=== PATIENT | female | born 1995 | race Caucasian/White ===

== ENCOUNTER 2017-01-15 14:20 | Inpatient (IN) | payer MEDICAID ==
[~2017-01-15] VITALS: Ht 170.2 cm; Wt 60.3 kg
[2017-01-15 14:35] VITALS: BP 144/78
[2017-01-15] MEDS ORDERED: LACTATED RINGERS 1,000 ML IV ONE ×2 (14:55→16:07)
[2017-01-15] MEDS ORDERED: metroNIDAZOLE 500MG/100ML IVPB 100 ML ONE (14:55)
[2017-01-15] MEDS ORDERED: FAMOTIDINE 20MG/2ML IV (PEPCID) IV ONE (15:00)
[2017-01-15] MEDS ORDERED: METOCLOPRAMIDE INJ 10 MG/2 ML (REGLAN) IV ONE (15:00)
[2017-01-15] MEDS ORDERED: ceFAZolin 2 GM/50 ML NS 50 ML IV ONE (15:00)
[2017-01-15] MEDS ORDERED: CITRIC ACID/SOB CIT (BICITRA) 30 ML UDC PO ONE (15:00)
[2017-01-15] MEDS ORDERED: CATHETER FLUSH 10 ML SYR IV PRN (15:15)
[2017-01-15 15:38] LABS: BASOPHILS % (AUTO) 0 % (0-10); EOSINOPHILS # (AUTO) 0.2 10^3/uL (0.0-0.3); EOSINOPHILS % (AUTO) 1 % (0-10); LYMPHOCYTES # (AUTO) 2.1 X 10^3 (1.0-4.0); LYMPHOCYTES % (AUTO) 9 % (12-44); MEAN CORPUSCULAR HEMOGLOBIN 32 PG (25-34); MEAN CORPUSCULAR HGB CONC 34 G/DL (32-36); MEAN CORPUSCULAR VOLUME 96 FL (80-99); MEAN PLATELET VOLUME 12.6 FL (7.4-10.4); MONOCYTES # (AUTO) 1.8 X 10^3 (0.0-1.0); MONOCYTES % (AUTO) 8 % (0-12); NEUTROPHILS # (AUTO) 18.1 X 10^3 (1.8-7.8); NEUTROPHILS % (AUTO) 82 % (42-75); PLATELET COUNT 174 10^3/uL (130-400); RED BLOOD COUNT 3.69 10^6/uL (4.35-5.85); WHITE BLOOD COUNT 22.2 10^3/uL (4.3-11.0)
[2017-01-15 15:39] LABS: BILIRUBIN,URINE NEGATIVE (NEGATIVE); KETONES,URINE 2+ (NEGATIVE); LEUKOCYTE ESTERASE ,URINE 3+ (NEGATIVE); NITRITE,URINE NEGATIVE (NEGATIVE); PH,URINE 6.5 (5-9); PROTEIN,URINE NEGATIVE (NEGATIVE); UROBILINOGEN,URINE NORMAL (NORMAL)
[2017-01-15 15:50] VITALS: BP 158/81
[2017-01-15 15:54] LABS: WBC,URINE 25-50 /HPF
[2017-01-15] MEDS ORDERED: OXYTOCIN/NORMAL SALINE 1,000 ML IV ONE (15:54)
[2017-01-15] MEDS ORDERED: fentaNYL INJECTION 100 MCG/2 ML AMP ONE (15:55)
[2017-01-15] MEDS ORDERED: PREN1TAB86 PO (16:02)
[2017-01-15 16:08] LABS: BAND NEUTROPHILS 2 %; BASOPHILS % (MANUAL) 0 %; EOSINOPHILS % (MANUAL) 0 %; LYMPHOCYTES % (MANUAL) 13 %; NEUTROPHILS % (MANUAL) 82 %
[2017-01-15 16:20] VITALS: BP 155/75
[2017-01-15] MEDS ORDERED: INFLUENZA TRIvalent 2017-2018 0.5 ML/45 MCG SYR IM ONE (16:30)
[2017-01-15] MEDS ORDERED: KETAMINE HCL 100 MG/ML 5 ML VIAL ONE (16:34)
[2017-01-15] MEDS ORDERED: D5 LR IV SOLUTION 1,000 ML IV SCH (16:42)
[2017-01-15] MEDS ORDERED: MEASLES,MUMPS,RUBELLA 1 EA INJ SC ONE (16:45)
[2017-01-15] MEDS ORDERED: fentaNYL INJECTION 100 MCG/2 ML AMP IVP PRN (16:45)
[2017-01-15] MEDS ORDERED: metroNIDAZOLE 500MG/100ML IVPB 100 ML IV ONE (16:45)
[2017-01-15] MEDS ORDERED: ceFAZolin INJECTION 2,000 MG in NS (IVPB) 50 ML IV ONE (16:45)
[2017-01-15] MEDS ORDERED: TETANUS,DIPTH,PERTUSS P/F (BOOSTRIX) 0.5 ML VIAL IM ONE (16:45)
[2017-01-15] MEDS ORDERED: D5 LR IV SOLUTION 1,000 ML IV ONE (16:51)
--- NOTE | 2017-01-15 16:52 | History & Physical ---
History and Physical Date Seen by Provider: Jan 15, 2017 Time Seen by Provider: 16:48 this patient is a 21-year-old 1 white female with an EDC of 2016 seen on this date in clinic for routine OB follow-up. She reports that 3- 4 days ago she beganas swelling and tenderness in the lower right labia majora. S to the point today where it is markedly swollen and exquisitely tender. She reports she's never had these issues before never had symptoms like this before. She denies rupture membranes or bleeding. She says she feels an occasional contraction and does feel baby moving. GBS culture done after 35 weeks gestation was negative. Exam in clinic demonstrated a large right Bartholin abscess. Patient has no significant surrounding erythema. The area is indurated. There was a fluctuant and tender mass in the inferior right labia majora consistent with an abscess of the Bartholin gland cyst. She was sent to labor and delivery for admission IV antibiotics delivery via repeat and surgical treatment of the abscessed Bartholin cyst. Allergies are none Medications are vitamins S medical history, past surgical history, obstetric history, family histories are per the antepartum record HEENT exam is normal Neck is supple no lymphadenopathy no thyromegaly Abdomen is gravid soft nontender nondistended Extremities show clubbing cyanosis there is no Homans sign. Right labia majora is distended tender inflamed. There is a obvious or abscess present. Lab work on admission is as noted Laboratory Tests Test 01/15/17 15:18 01/15/17 15:20 Range/Units White Blood Count 22.2 H 4.3-11.0 10^3/uL Red Blood Count 3.69 L 4.35-5.85 10^6/uL Hemoglobin 11.9 11.5-16.0 G/DL Hematocrit 36 35-52 % Mean Corpuscular Volume 96 80-99 FL Mean Corpuscular Hemoglobin 32 25-34 PG Mean Corpuscular Hemoglobin Concent 34 32-36 G/DL Red Cell Distribution Width 14.0 10.0-14.5 % Platelet Count 174 130-400 10^3/uL Mean Platelet Volume 12.6 H 7.4-10.4 FL Neutrophils (%) (Auto) 82 H 42-75 % Lymphocytes (%) (Auto) 9 L 12-44 % Monocytes (%) (Auto) 8 0-12 % Eosinophils (%) (Auto) 1 0-10 % Basophils (%) (Auto) 0 0-10 % Neutrophils # (Auto) 18.1 H 1.8-7.8 X 10^3 Lymphocytes # (Auto) 2.1 1.0-4.0 X 10^3 Monocytes # (Auto) 1.8 H 0.0-1.0 X 10^3 Eosinophils # (Auto) 0.2 0.0-0.3 10^3/uL Basophils # (Auto) 0.0 0.0-0.1 10^3/uL Neutrophils % (Manual) 82 % Lymphocytes % (Manual) 13 % Monocytes % (Manual) 3 % Eosinophils % (Manual) 0 % Basophils % (Manual) 0 % Band Neutrophils 2 % Blood Morphology Comment NORMAL Urine Color YELLOW Urine Clarity CLEAR Urine pH 6.5 5-9 Urine Specific Jed[place] 1.010 L 1.016-1.022 Urine Protein NEGATIVE NEGATIVE Urine Glucose (UA) NEGATIVE NEGATIVE Urine Ketones 2+ H NEGATIVE Urine Nitrite NEGATIVE NEGATIVE Urine Bilirubin NEGATIVE NEGATIVE Urine Urobilinogen NORMAL NORMAL MG/DL Urine Leukocyte Esterase 3+ H NEGATIVE Urine RBC (Auto) NEGATIVE NEGATIVE Urine RBC NONE /HPF Urine WBC 25-50 H /HPF Urine Squamous Epithelial Cells 5-10 /HPF Urine Crystals NONE /LPF Urine Bacteria FEW H /HPF Urine Casts NONE /LPF Urine Mucus NEGATIVE /LPF Urine Culture Indicated YES White blood cell count isAn elevated monitor shows normal heart rate pattern. There are contractions every 4-6 minutes. Assessment and plan 37-5/7 weeks' gestation in patient with previous C- section and with a right Bartholin abscess of several different days duration. Her white blood cell count is fairly markedly elevated. She has been started on antibiotics. Prior to surgical treatment of this abscess proceeding with repeat delivery. Then the abscess will be marsupialized. 37-5/7 weeks' gestation with previous and right Bartholin abscess Allergies and Home Medications Allergies Coded Allergies: No Known Drug Allergies (Unverified , 01/15/17) Home Medications Vit W-Ca,Fe,FA(<1 mg) 1 Each Tablet, 1 EACH PO DAILY, (Reported) Clinical Quality Measures DVT/VTE Risk/Contraindication: Risk Factor Score Per Nursin RFS Level Per Nursing on Admit: 2=Moderate MAGGIE ROBERTS MD Jan 15, 2017 4:52 pm
--- NOTE | 2017-01-15 16:53 | Progress Note-Post Operative ---
Post-Operative Progess Note Surgeon (s)/Remote Encoding Operations Supervisor (s) Surgeon MAGGIE ROBERTS MD Remote Encoding Operations Supervisor: Teetee Johnson Pre-Operative Diagnosis right Bartholin abscess at 37-5/7 weeks' gestation with previous Post-Operative Diagnosis signed Procedure & Operative Findings Date of Procedure 01/15/17 Procedure Performed/Findings repeat low transverse delivery and marsupialization of a right Bartholin abscess Anesthesia Type spinal Estimated Blood Loss Estimated blood loss (mL): 500 mL for the 30 mL for the marsupialization of right Bartholin Specimens/Packing Specimens Removed placenta and umbilical cord. Culture from right Bartholin abscess Packing: none MAGGIE ROBERTS MD Jan 15, 2017 16:53
[2017-01-15] MEDS: KETOROLAC 30 MG/ML VIAL IVP SCH ×2 (17:45→23:17)
[2017-01-15] MEDS: oxyCODONE/APAP 10/325MG (PERCOCET 10) TABLET PO PRN (19:35)
[2017-01-15 19:50] VITALS: BP 140/83
[2017-01-15 21:00] VITALS: BP 136/79
[2017-01-15] MEDS ORDERED: metroNIDAZOLE 500MG/100ML IVPB 100 ML IV SCH ×2 (21:00→22:00)
[2017-01-15] MEDS ORDERED: ceFAZolin INJECTION 1,000 MG in NS (IVPB) 50 ML IV SCH (21:00)
[2017-01-15] MEDS: OXYTOCIN/NORMAL SALINE 500 ML IV SCH ×2 (21:40→21:52)
[2017-01-15] MEDS: HYDROCORTISONE 2.5% CREAM (ANUSOL-HC) 30 GM TOP SCH (21:42)
[2017-01-15] MEDS: DOCUSATE SODIUM 100 MG (COLACE) CAP PO SCH (21:52)
[2017-01-15 23:17] VITALS: BP 133/73
[2017-01-16 00:44] VITALS: BP 139/59
[2017-01-16] MEDS: oxyCODONE/APAP 10/325MG (PERCOCET 10) TABLET PO PRN ×3 (00:44→10:21)
[2017-01-16] MEDS: ceFAZolin INJECTION 1,000 MG in NS (IVPB) 50 ML IV SCH ×2 (00:44→08:36)
[2017-01-16 04:52] VITALS: BP 143/68
[2017-01-16 05:52] LABS: BASOPHILS % (AUTO) 0 % (0-10); EOSINOPHILS # (AUTO) 0.3 10^3/uL (0.0-0.3); EOSINOPHILS % (AUTO) 2 % (0-10); LYMPHOCYTES # (AUTO) 2.5 X 10^3 (1.0-4.0); LYMPHOCYTES % (AUTO) 17 % (12-44); MEAN CORPUSCULAR HEMOGLOBIN 31 PG (25-34); MEAN CORPUSCULAR HGB CONC 32 G/DL (32-36); MEAN CORPUSCULAR VOLUME 97 FL (80-99); MEAN PLATELET VOLUME 12.7 FL (7.4-10.4); MONOCYTES # (AUTO) 1.7 X 10^3 (0.0-1.0); MONOCYTES % (AUTO) 12 % (0-12); NEUTROPHILS # (AUTO) 9.9 X 10^3 (1.8-7.8); NEUTROPHILS % (AUTO) 69 % (42-75); PLATELET COUNT 161 10^3/uL (130-400); RED BLOOD COUNT 3.69 10^6/uL (4.35-5.85); RED CELL DISTRIBUTION WIDTH 13.8 % (10.0-14.5); WHITE BLOOD COUNT 14.4 10^3/uL (4.3-11.0)
[2017-01-16] MEDS: KETOROLAC 30 MG/ML VIAL IVP SCH (06:49)
--- NOTE | 2017-01-16 07:46 | Progress Note-Standard ---
Standard Progress Note Progress Notes/Assess & Plan Date Seen by Provider: Jan 16, 2017 Time Seen by Provider: 07:45 Progress/Assessment & Plan this patient is without complaint. Her labial pain is markedly improved after marsupialization of the Bartholin abscess. Patient is ambulating, voiding, tolerating by mouth well, has good pain control. Patient denies chest pain, denies shortness of breath, denies nausea or vomiting, patient is requesting discharge home as her child has been transferred to [facility] last evening. Laboratory Tests Test 01/15/17 15:18 01/15/17 15:20 01/16/17 05:35 Range/Units White Blood Count 22.2 H 14.4 H 4.3-11.0 10^3/uL Red Blood Count 3.69 L 3.69 L 4.35-5.85 10^6/uL Hemoglobin 11.9 11.6 11.5-16.0 G/DL Hematocrit 36 36 35-52 % Mean Corpuscular Volume 96 97 80-99 FL Mean Corpuscular Hemoglobin 32 31 25-34 PG Mean Corpuscular Hemoglobin Concent 34 32 32-36 G/DL Red Cell Distribution Width 14.0 13.8 10.0-14.5 % Platelet Count 174 161 130-400 10^3/uL Mean Platelet Volume 12.6 H 12.7 H 7.4-10.4 FL Neutrophils (%) (Auto) 82 H 69 42-75 % Lymphocytes (%) (Auto) 9 L 17 12-44 % Monocytes (%) (Auto) 8 12 0-12 % Eosinophils (%) (Auto) 1 2 0-10 % Basophils (%) (Auto) 0 0 0-10 % Neutrophils # (Auto) 18.1 H 9.9 H 1.8-7.8 X 10^3 Lymphocytes # (Auto) 2.1 2.5 1.0-4.0 X 10^3 Monocytes # (Auto) 1.8 H 1.7 H 0.0-1.0 X 10^3 Eosinophils # (Auto) 0.2 0.3 0.0-0.3 10^3/uL Basophils # (Auto) 0.0 0.0 0.0-0.1 10^3/uL Neutrophils % (Manual) 82 % Lymphocytes % (Manual) 13 % Monocytes % (Manual) 3 % Eosinophils % (Manual) 0 % Basophils % (Manual) 0 % Band Neutrophils 2 % Blood Morphology Comment NORMAL Urine Color YELLOW Urine Clarity CLEAR Urine pH 6.5 5-9 Urine Specific [place] 1.010 L 1.016-1.022 Urine Protein NEGATIVE NEGATIVE Urine Glucose (UA) NEGATIVE NEGATIVE Urine Ketones 2+ H NEGATIVE Urine Nitrite NEGATIVE NEGATIVE Urine Bilirubin NEGATIVE NEGATIVE Urine Urobilinogen NORMAL NORMAL MG/DL Urine Leukocyte Esterase 3+ H NEGATIVE Urine RBC (Auto) NEGATIVE NEGATIVE Urine RBC NONE /HPF Urine WBC 25-50 H /HPF Urine Squamous Epithelial Cells 5-10 /HPF Urine Crystals NONE /LPF Urine Bacteria FEW H /HPF Urine Casts NONE /LPF Urine Mucus NEGATIVE /LPF Urine Culture Indicated YES Vital Signs Date Time Temp Pulse Resp B/P (MAP) Pulse Ox O2 Delivery O2 Flow Rate FiO2 01/16/17 04:52 97.6 90 18 143/68 97 Room Air 01/16/17 00:44 97.6 79 18 139/59 97 Room Air 01/15/17 23:17 97.4 77 18 133/73 97 Room Air 01/15/17 21:00 98.0 88 18 136/79 98 Room Air 01/15/17 19:50 98.6 97 18 140/83 98 Room Air 01/15/17 16:20 92 18 155/75 Room Air 01/15/17 15:50 91 18 158/81 Room Air 01/15/17 14:35 99.0 93 18 144/78 Room Air vital signs are stable. Patient is afebrile. Patient's white count has decreasedNotably. Fundus is firm below the umbilicus and nontender. Extremities show no clubbing or cyanosis. There is no Homans sign. Assessment and plan postoperative day number 1 status post repeat doing well. Patient's Bartholin abscess pain is dramatically improved after the marsupialization. Patient will be continued on antibiotics empirically pending the culture results from the abscess cavity. Patient will be discharged home with follow-up in clinic. Final Diagnosis 37-5/7 weeks' gestation with repeat MAGGIE ROBERTS MD Jan 16, 2017 7:46 am
--- NOTE | 2017-01-16 07:49 | Discharge Instructions ---
Discharge Instructions Discharge Medications New, Converted or Re-Newed RX: RX on Chart Patient Instructions Patient Instructions: as directed Return to The Hospital For: as directed Activity & Diet Discharge Diet: No Restrictions Activity as Tolerated: No Orders-Post D/C & Referrals Follow Up Appt: RTC on Thursday, January 19, 2017 at 930 a.m. for staple removal. Call to make follow up appt. for patient in 4 weeks. Wound Care: do not remove sukumar prior to discharge. We will remove the surgical sukumar Thursday morning in my clinic Activity Per routine post instructions. Please call in RX to patient pharmacy. Diet as tolerated Patient may shower or tub bathe as desired. Continue home meds MAGGIE ROBERTS MD Jan 16, 2017 7:49 am
[2017-01-16] MEDS ORDERED: DOCU100C37 PO (07:51)
[2017-01-16] MEDS ORDERED: OXYC-465 PO (07:51)
[2017-01-16] MEDS ORDERED: CEPH-507 PO (07:51)
[2017-01-16] MEDS ORDERED: IBUP-1780 PO (07:51)
[2017-01-16 08:30] VITALS: BP 136/75
[2017-01-16] MEDS: HYDROCORTISONE 2.5% CREAM (ANUSOL-HC) 30 GM TOP SCH (08:37)
[2017-01-16] MEDS: DOCUSATE SODIUM 100 MG (COLACE) CAP PO SCH (08:37)
--- NOTE | 2017-01-16 10:38 | Anesthesia-Regional Post-Op ---
Regional Patient Condition Mental Status: Alert, Oriented x3 Circulation: Same as Pre-Op Headache: Absent Sensation: Full Recovery Motor Block: Absent Post Op Complications Complications None Follow Up Care/Instructions Patient Instructions None needed. Anesthesia/Patient Condition Patient is doing well, no complaints, stable vital signs, no apparent adverse anesthesia problems. No complications reported per nursing. JANIYA ALVARADO CRNA Jan 16, 2017 10:38
[2017-01-16] MEDS ORDERED: IBUPROFEN 800 MG (MOTRIN) TAB PO ONE (12:15)
[2017-01-16] MEDS ORDERED: IBUPROFEN 800 MG (MOTRIN) TAB PO SCH (16:45)
--- NOTE | 2017-01-18 04:33 | OPERATIVE REPORT ---
DATE OF SERVICE: 01/15/2017 PREOPERATIVE DIAGNOSIS: 37 and 5/7 weeks' gestation with previous and with large right Bartholin abscess. POSTOPERATIVE DIAGNOSIS: 37 and 5/7 weeks' gestation with previous and with large right Bartholin abscess. OPERATIVE PROCEDURE: Repeat low transverse delivery followed by a marsupialization of right Bartholin abscess. OPERATIVE DESCRIPTION: With the patient in the supine position under satisfactory spinal anesthesia, she was prepped and draped in the usual fashion for abdominal surgery. Garcia catheter was placed in the urinary bladder. A repeat Pfannenstiel incision was made through the skin with a scalpel by removing the patient's previous Pfannenstiel incisional scar, which was approximately centimeter and a half tall across almost its entire length. The abdomen was then entered in the usual manner. Bladder retractor was placed into position and clean scalpel used to make a 4 cm hysterotomy incision transversally across the lower uterine segment that was extended by blunt dissection as well. Copious clear fluid was released on hysterotomy. Potts forceps were applied to facilitate delivery of a vigorous viable male . The had Apgars of 8, 7 and 8 at 1, 5 and 10 minutes. The infant's weight was 5 pounds 8 ounces. time was 1715. Cord bloods arterial pH was 7.31. The infant was bulb suctioned on delivery of the head and again on completion of delivery. The umbilical cord was doubly clamped and cut and the infant passed to the nurse Micah, the pediatric nurse in attendance for delivery. Cord bloods were obtained. The placenta was then delivered spontaneously Schule. It was normal, although quite heavily calcified and did have a 3-vessel cord. That was sent to pathology for permanent section. The uterus was exteriorized, the anterior wiped clean with a wet laparotomy sponge. Uterine incision was closed with a running locked suture of 2-0 Vicryl. Hemostasis was complete. The uterus was returned to abdominal cavity. All blood clot and debris removed from the abdominal cavity. With sponge and needle counts correct and hemostasis assured, the anterior parietal peritoneum was closed with a running suture of 2-0 Vicryl. The rectus muscles were closed with that suture as well. The rectus fascia was closed with 2-0 Vicryl, subcutaneous tissue with 2-0 Vicryl and the skin was stapled. Sponge and needle counts were correct at this point. The patient was undraped and repositioned in the dorsal lithotomy position and then reprepped and draped for marsupialization of Bartholin abscess. Garcia catheter had been removed after the . The patient had a 3 x 3 cm fluctuant mass filling the right lower labia majora. This was palpable to just inside the hymenal ring. Sutures of 2-0 Vicryl were placed in the right labia minora and affixed to the inner thigh to expose the introitus and retract the labia. A suture of 2-0 Vicryl Rapide was placed into and out of the cystic mass and tagged and a second was placed inferior to that and tagged. An incision was made in between the sutures releasing copious iridescent green purulent matter. A culture was taken of the abscess cavity. The midportion of the suture was then brought out through the incision. This suture was cut and tagged in the 4 locations; anterior and posterior, left and right, lateral on the opening into the abscess pocket. A third suture was then used to suture the skin to the cyst wall between each of the four cardinal sutures and then each of the four cardinal sutures were tied and cut short effectively marsupializing the pocket. The pocket had been copiously irrigated after opening it. There was minimal bleeding at this point. The labia retraction sutures were removed. The patient had minimal bleeding from her . Sponge and needle counts were correct at this point. Estimated blood loss for the was around 500 mL. Additional 30 mL of blood was lost performing the marsupialization of the right Bartholin abscess. A Dawna-Pad was applied. Sterile dressing had been applied to the abdominal wound. The patient was now transferred to the recovery room in stable condition. The had been taken stable to the full term nursery under the care of Micah elias. Job ID: [id number] DocumentID: [id number] Dictated Date: 01/15/2017 18:05:07 Computer Lab Assistant Date: 01/16/2017 05:02:35 Dictated By: MAGGIE ROBERTS MD [facility]ENTERJavi
== END 2017-01-16 14:00 | disposition home or self-care (01) | DRG 765 ==
LOC: LDRP 14:20
PROVIDERS: ADMIT Obstetrics & Gynecology; ATTEND Obstetrics & Gynecology
PROC: 10D00Z1 Extraction of Products of Conception, Low, Open Approach (ICD-10-PCS; principal; 2017-01-15 16:47)
PROC: 0U9L0ZZ Drainage of Vestibular Gland, Open Approach (ICD-10-PCS; 2017-01-15 16:47)
DX: O34.211 Maternal care for low transverse scar from previous cesarean delivery (principal); O99.89 Other specified diseases and conditions complicating pregnancy, childbirth and the puerperium; N75.1 Abscess of Bartholin's gland; O99.333 Smoking (tobacco) complicating pregnancy, third trimester; F17.210 Nicotine dependence, cigarettes, uncomplicated; Z3A.37 37 weeks gestation of pregnancy; Z37.0 Single live birth
CPT/HCPCS: 36415; 81000; 85007; 85025; 85027; 86850; 86900; 86901; 87070; 87075; 87077; 87088; 87205

== ENCOUNTER 2019-11-16 17:45 | Emergency (ER) | payer MEDICAID ==
[~2019-11-16] VITALS: Ht 170 cm; Wt 52.0 kg
[~2019-11-16 17:45] MED LIST: CEPH-507 PO; DOCU100C37 PO; IBUP-1780 PO; OXYC-465 PO; PREN1TAB86 PO
--- OUTSIDE RECORDS SUMMARY | 2019-11-16 17:49 | XMS REPORT | Continuity of Care Document ---
Author Organization Unknown Address Unknown Phone Unavailable Allergies Active Description Code Type Severity Reaction Onset Reported/Identified Relationship to Patient Clinical Status Yes No Known Drug Allergies [id number] Drug Allergy Unknown N/A 01/15/2017 Medications There is no data. Problems Date Dx Coded Attending Type Code Diagnosis Diagnosed By 01/16/2017 MAGGIE ROBERTS MD, Ot F17.210 NICOTINE DEPENDENCE, CIGARETTES, UNCOMPL 01/16/2017 MAGGIE ROBERTS MD, Ot N75.1 ABSCESS OF BARTHOLIN'S GLAND 01/16/2017 MAGGIE ROBERTS MD, Ot O34.211 MATERN CARE FOR LOW TRANSVERSE SCAR FROM 01/16/2017 MAGGIE ROBERTS MD, Ot O99.333 SMOKING (TOBACCO) COMPLICATING 01/16/2017 MAGGIE ROBERTS MD, Ot O99.89 OTH DISEASES AND CONDITIONS COMPL PREG/C 01/16/2017 MAGGIE ROBERTS MD, Ot Z37.0 SINGLE LIVE 01/16/2017 MAGGIE ROBERTS MD, Ot Z3A.37 37 WEEKS GESTATION OF Procedures Code Description Performed By Per formed On [id number] DR GAVIRIA OF VESTIBULAR GLAND, OPEN APPRO 01/15/2017 [id number] EX TRACTION OF POC, LOW CERVICAL, OPEN AP 01/15/2017 Results Test Result Range Blood type T Indirect antibody screen pa lm - 01/15/17 15:18 ABO+Rh group AP NRG Transfusion band number [id number] NRG Blood group antibody screen NEGATIVE NR G Complete blood count (CBC) with automate d white blood cell (WBC) differential - 01/15/17 15:18 Blood leukocytes automated count (number/volume) 22.2 10*3/uL 4.3-11.0 Blood erythrocytes automated count (number/volume) 3.69 10*6/uL 4.35-5.85 Venous blood hemoglobin measurement (mass/volume) 11.9 g/dL 11.5-16.0 Blood hematocrit (volume fraction) 36 % 35-52 Automated erythrocyte mean corpuscular volume 96 [ foz_us] 80-99 Automated erythrocyte mean corpuscular h emoglobin (mass per erythrocyte) 32 pg 25-34 Automated erythrocyte mean corpuscular h emoglobin concentration measurement (mass/volume) 34 g/dL 32-36 Automated erythrocyte distribution width ratio 14. 0 % 10.0- 14.5 Automated blood platelet count (count/volume) 174 10*3/uL 130-400 Automated blood platelet mean volume measurement 12.6 [foz_us] 7.4-10.4 Automated blood neutrophils/100 leukocytes 82 % 42-75 Automated blood lymphocytes/100 leukocytes 9 % 12-44 Blood monocytes/100 leukocytes 8 % 0-12 Automated blood eosinophils/100 leukocytes 1 % 0-10 Automated blood basophils/100 leukocytes 0 % 0-10 Blood neutrophils automated count (number/volume) 18.1 10*3 1.8-7.8 Blood lymphocytes automated count (number/volume) 2.1 10*3 1.0-4.0 Blood monocytes automated count (number/volume) 1. 8 10*3 0.0-1.0 Automated eosinophil count 0.2 10*3/uL 0 .0-0.3 Automated blood basophil count (count/volume) 0.0 10*3/uL 0.0-0.1 Blood manual differential performed dete ction - 01/15/17 15:18 Blood monocytes/100 leukocytes 3 % NRG Manual blood segmented neutrophils/100 leukocytes 82 % NRG Blood band neutrophils/100 leukocytes 2 % NRG Manual blood lymphocytes/100 leukocytes 13 % NRG Manual eosinophils/100 leukocytes in nose 0 % NRG Manual blood basophils/100 leukocytes 0 % NRG Blood erythrocyte morphology finding identification NORMAL NRG Complete urinalysis with reflex to cultu re - 01/15/17 15:20 Urine color determination YELLOW NRG Urine clarity determination CLEAR NR G Urine pH measurement by test strip 6.5 5-9 Specific gravity of urine by test strip 1.010 1.016-1.022 Urine protein assay by test strip, semi-quantitative NEGATIVE NEGATIVE Urine glucose detection by automated test strip NE GATIVE NEGATIVE Erythrocytes detection in urine sediment by light micr oscopy NEGATIVE NEGATIVE Urine ketones detection by automated test strip 2+ NEGATIVE Urine nitrite detection by test strip NEGATIVE NEGATIVE Urine total bilirubin detection by test strip NEGA TIVE NEGATIVE Urine urobilinogen measurement by automated test strip (mass/volume) NORMAL NORMAL Urine leukocyte esterase detection by dipstick 3+ NEGATIVE Automated urine sediment erythrocyte cou nt by microscopy (number/high power field) NONE NRG Automated urine sediment leukocyte count by microscopy (number/high power field) [HPF] NRG Bacteria detection in urine sediment by light microsco py FEW NRG Squamous epithelial cells detection in u rine sediment by light microscopy 5-10 NRG Crystals detection in urine sediment by light microsco py NONE NRG Casts detection in urine sediment by light microscopy NONE NRG Mucus detection in urine sediment by light microscopy NEGATIVE NRG Complete urinalysis with reflex to culture YES NRG Bacterial urine culture - 01/15/17 15:20 Bacterial urine culture [id number] NRG COLONY COUNT >100,000/ML NRG FTX;REPORTABLE PLUS MIXED GRAM POSITIVES <10,000/M L NRG Bacteria identification in isolate by an aerobe culture - 01/15/17 17:45 Bacteria identification in isolate by anaerobe culture NOANA NRG Gram stain microscopy - 01/15/17 17:45 GRAM STAIN RESULT FEW WBC'S, NO BACTERIA OBSERVED NRG Bacteria identification in wound by cult ure - 01/15/17 17:45 Bacteria identification in wound by culture [id number] NRG FREE TEXT EXTERNAL BETA-LACTAMASE NEGATIVE NRG QUANTITY OF GROWTH Moderate Growth NRG Complete blood count (CBC) with automate d white blood cell (WBC) differential - 01/16/17 05:35 Blood leukocytes automated count (number/volume) 14.4 10*3/uL 4.3-11.0 Blood erythrocytes automated count (number/volume) 3.69 10*6/uL 4.35-5.85 Venous blood hemoglobin measurement (mass/volume) 11.6 g/dL 11.5-16.0 Blood hematocrit (volume fraction) 36 % 35-52 Automated erythrocyte mean corpuscular volume 97 [ foz_us] 80-99 Automated erythrocyte mean corpuscular h emoglobin (mass per erythrocyte) 31 pg 25-34 Automated erythrocyte mean corpuscular h emoglobin concentration measurement (mass/volume) 32 g/dL 32-36 Automated erythrocyte distribution width ratio 13. 8 % 10.0- 14.5 Automated blood platelet count (count/volume) 161 10*3/uL 130-400 Automated blood platelet mean volume measurement 12.7 [foz_us] 7.4-10.4 Automated blood neutrophils/100 leukocytes 69 % 42-75 Automated blood lymphocytes/100 leukocytes 17 % 12-44 Blood monocytes/100 leukocytes 12 % 0-12 Automated blood eosinophils/100 leukocytes 2 % 0-10 Automated blood basophils/100 leukocytes 0 % 0-10 Blood neutrophils automated count (number/volume) 9.9 10*3 1.8-7.8 Blood lymphocytes automated count (number/volume) 2.5 10*3 1.0-4.0 Blood monocytes automated count (number/volume) 1. 7 10*3 0.0-1.0 Automated eosinophil count 0.3 10*3/uL 0 .0-0.3 Automated blood basophil count (count/volume) 0.0 10*3/uL 0.0-0.1 Encounters ACCT No. Visit Date/Time Discharge Status Pt. Type Provider Facility Loc./Unit Complaint [id number] 10/18/2018 15:30:00 10/18/2018 23:59: 59 CLS Out[facility] [id number] 01/15/2017 14:20:00 017 14:00:00 DIS Inpatient ALEJANDRA MODI, MAGGIE [facility] L[facility] REPEAT C-SECTIO N
--- NOTE | 2019-11-16 17:56 | ED GU-Female ---
General Chief Complaint: Abdominal/GI Problems Stated Complaint: ABD/BACK PAIN Source: patient Exam Limitations: no limitations History of Present Illness Date Seen by Provider: Nov 16, 2019 Time Seen by Provider: 17:56 Initial Comments 24-year-old female presents with right lower quadrant and right back pain. Patient believes she is approximately 8 weeks based on a home test. Patient's last menstrual cycle was approximately September 21 which would make her approximately 7 weeks 6/7 days. Patient reports the pain started around 1 PM this afternoon his gotten progressively worse throughout the day. Patient reports the pain is a little bit higher up in her right lower abdomen not so much down in the pelvis. She does report some nausea. She has had. 2 previous miscarriages. She does not have any vaginal bleeding. She does not have any urinary symptoms. Allergies and Home Medications Allergies Coded Allergies: No Known Drug Allergies (Unverified , 01/15/17) Home Medications Cephalexin 500 Mg Capsule, 500 MG PO QID Prescribed by: MAGGIE RASHID on 01/16/17750 Docusate Sodium 100 Mg Capsule, 100 MG PO BID Prescribed by: MAGGIE RASHID on 01/16/17750 Ibuprofen 800 Mg Tablet, 800 MG PO Q6H Prescribed by: MAGGIE RASHID on 01/16/17 075 Oxycodone HCl/Acetaminophen 1 Each Tablet, 1-2 TAB PO Q4HR PRN for PAIN-MODERATE TO SEVERE Prescribed by: MAGGIE RASHID on 01/16/17 075 Vit W-Ca,Fe,FA(<1 mg) 1 Each Tablet, 1 EACH PO DAILY, (Reported) Patient Home Medication List Home Medication List Reviewed: Yes Review of Systems Review of Systems Constitutional: No chills, No fever Respiratory: No cough, No short of breath Cardiovascular: No chest pain, No palpitations Gastrointestinal: abdominal pain (RLQ), nausea; No vomiting Genitourinary: denies burning, denies frequency Musculoskeletal: no symptoms reported Skin: no symptoms reported Psychiatric/Neurological: No Symptoms Reported Endocrine: No Symptoms Reported Hematologic/Lymphatic: No Symptoms Reported Past Cowqthz-Aacoxr-Lipkob Hx Past Med/Social Hx: Reviewed Nursing Past Med/Soc Hx Patient Social History Alcohol Use: Denies Use Recreational Drug Use: No Smoking Status: Former Smoker Type Used: Cigarettes Recent Foreign Travel: No Contact w/Someone Who Travel: No Recent Hopitalizations: No Immunizations Up To Date Tetanus Booster (TDap): Unknown Seasonal Allergies Seasonal Allergies: No Past Medical History Surgeries: Yes (hand surgery) Respiratory: No Cardiac: Yes ("skipped beats") Neurological: No Genitourinary: No Gastrointestinal: No Musculoskeletal: No Endocrine: No HEENT: No Cancer: No Psychosocial: No Integumentary: No Blood Disorders: No Family Medical History Patient reports no known family medical history. Physical Exam Vital Signs Vital Signs - First Documented 11/16/19 17:56 Temp 37.0 Pulse 80 Resp 16 B/P (MAP) 145/85 (105) Pulse Ox 100 O2 Delivery Room Air Capillary Refill : Height, Weight, BMI Height: 5'7.00" Weight: 133lbs. 0.6oz. 60.825086nv; 20.8 BMI Method: General Appearance: no apparent distress HEENT: normal ENT inspection, TMs normal Neck: full range of motion Cardiovascular: normal peripheral pulses, regular rate, rhythm Respiratory: lungs clear, normal breath sounds, no respiratory distress Gastrointestinal: soft, tenderness (rlq) Back: CVA tenderness (R) Neurologic/Psychiatric: alert, normal mood/affect, oriented x 3 Skin: normal color, warm/dry Progress/Results/Core Measures Suspected Sepsis SIRS Temperature: Pulse: Respiratory Rate: Laboratory Tests 11/16/19 18:15: White Blood Count 10.8 Blood Pressure / Mean: Laboratory Tests 11/16/19 18:15: Creatinine 0.71, Platelet Count 170, Total Bilirubin 0.7 Results/Orders Lab Results Laboratory Tests Test 11/16/19 17:50 11/16/19 18:15 Range/Units Urine Color YELLOW Urine Clarity SLT CLOUDY Urine pH 6.0 5-9 Urine Specific [place] 1.020 1.016-1.022 Urine Protein NEGATIVE NEGATIVE Urine Glucose (UA) NEGATIVE NEGATIVE Urine Ketones 3+ H NEGATIVE Urine Nitrite NEGATIVE NEGATIVE Urine Bilirubin NEGATIVE NEGATIVE Urine Urobilinogen 0.2 < = 1.0 MG/DL Urine Leukocyte Esterase NEGATIVE NEGATIVE Urine RBC (Auto) 1+ H NEGATIVE Urine RBC 2-5 H /HPF Urine WBC 0-2 /HPF Urine Squamous Epithelial Cells 5-10 /HPF Urine Crystals NONE /LPF Urine Bacteria TRACE /HPF Urine Casts NONE /LPF Urine Mucus SMALL H /LPF Urine Culture Indicated NO White Blood Count 10.8 4.3-11.0 10^3/uL Red Blood Count 4.00 L 4.35-5.85 10^6/uL Hemoglobin 12.4 11.5-16.0 G/DL Hematocrit 37 35-52 % Mean Corpuscular Volume 93 80-99 FL Mean Corpuscular Hemoglobin 31 25-34 PG Mean Corpuscular Hemoglobin Concent 33 32-36 G/DL Red Cell Distribution Width 12.4 10.0-14.5 % Platelet Count 170 130-400 10^3/uL Mean Platelet Volume 11.9 H 7.4-10.4 FL Neutrophils (%) (Auto) 80 H 42-75 % Lymphocytes (%) (Auto) 12 12-44 % Monocytes (%) (Auto) 6 0-12 % Eosinophils (%) (Auto) 1 0-10 % Basophils (%) (Auto) 0 0-10 % Neutrophils # (Auto) 8.7 H 1.8-7.8 X 10^3 Lymphocytes # (Auto) 1.3 1.0-4.0 X 10^3 Monocytes # (Auto) 0.7 0.0-1.0 X 10^3 Eosinophils # (Auto) 0.1 0.0-0.3 10^3/uL Basophils # (Auto) 0.0 0.0-0.1 10^3/uL Sodium Level 136 135-145 MMOL/L Potassium Level 3.6 3.6-5.0 MMOL/L Chloride Level 100 98-107 MMOL/L Carbon Dioxide Level 20 L 21-32 MMOL/L Anion Gap 16 H 5-14 MMOL/L Blood Urea Nitrogen 14 7-18 MG/DL Creatinine 0.71 0.60-1.30 MG/DL Estimat Glomerular Filtration Rate > 60 BUN/Creatinine Ratio 20 Glucose Level 108 H 70-105 MG/DL Calcium Level 9.9 8.5-10.1 MG/DL Corrected Calcium 8.5-10.1 MG/DL Total Bilirubin 0.7 0.1-1.0 MG/DL Aspartate Amino Transf (AST/SGOT) 19 5-34 U/L Alanine Aminotransferase (ALT/SGPT) 14 0-55 U/L Alkaline Phosphatase 41 40-136 U/L C-Reactive Protein 0.04 <0.50 MG/DL Total Protein 7.1 6.4-8.2 GM/DL Albumin 4.8 H 3.2-4.5 GM/DL Human Chorionic Gonadotropin, Quant [id number] H <5 MIU/ML My Orders Orders - NORTONANAHY L DO Ua Culture If Indicated (11/16/19 17:56) Cbc With Automated Diff (11/16/19 18:06) Comprehensive Metabolic Panel (11/16/19 18:06) Hcg,Quantitative (11/16/19 18:06) Crp Fs (11/16/19 18:06) Ed Iv/Invasive Line Start (11/16/19 19:17) Fentanyl Injection (Sublimaze Injection (11/16/19 19:17) Ondansetron Injection (Zofran Injectio (11/16/19 19:45) Ondansetron Injection (Zofran Injectio (11/16/19 19:32) Medications Given in ED Current Medications Medications Dose Ordered Sig/Pratik Route Start Time Stop Time Status Last Admin Dose Admin Ondansetron HCl 4 mg ONCE ONCE IVP 11/16/19 19:45 11/16/19 19:46 DC 11/16/19 19:39 4 MG Vital Signs/I&O 11/16/19 11/16/19 17:56 19:48 Temp 37.0 Pulse 80 86 Resp 16 16 B/P (MAP) 145/85 (105) 124/79 Pulse Ox 100 100 O2 Delivery Room Air Room Air Capillary Refill : Progress Note : Time: 20:14 Progress Note pt with RLQ pain concerning for early miscarriage vs ectoptic. pt was to be transferred to [facility] to ER for US since not available at [facility] or [facility]. when ems arrived to transport pt, pt declined transfer and decided to leave ama. pt voices understanding of risk. Departure Impression Primary Impression: Qualified Codes: Z3A.08 - 8 weeks gestation of Additional Impression: Right lower quadrant abdominal pain affecting in first trimester Disposition: AGAINST MEDICAL ADVICE Condition: Stable Transfer Transfer Reason: Exceeds level of care Time Spoke to Accepting Phy: 19:12 Transfer Progress Notes Patient to be transferred since she needs an OB ultrasound rule out ectopic cy or other etiology concerning etiology. Ultrasound is not available at the [facility], here at [facility] or [facility] Departure-Patient Inst. Referrals: NO,LOCAL PHYSICIAN (PCP/Family) Primary Care Physician ANAHY NORTON DO Nov 16, 2019 17:56
[2019-11-16 18:07] LABS: CLARITY,URINE SLT CLOUDY; COLOR,URINE YELLOW; PROTEIN,URINE NEGATIVE (NEGATIVE)
[2019-11-16 18:08] LABS: GLUCOSE, URINE (UA) NEGATIVE (NEGATIVE); KETONES,URINE 3+ (NEGATIVE)
[2019-11-16 18:09] LABS: BILIRUBIN,URINE NEGATIVE (NEGATIVE); LEUKOCYTE ESTERASE ,URINE NEGATIVE (NEGATIVE); NITRITE,URINE NEGATIVE (NEGATIVE); WBC,URINE 0-2 /HPF
[2019-11-16 18:10] LABS: BACTERIA,URINE TRACE /HPF
[2019-11-16 18:22] LABS: HEMATOCRIT 37 % (35-52); HEMOGLOBIN 12.4 G/DL (11.5-16.0); MEAN CORPUSCULAR HEMOGLOBIN 31 PG (25-34); MEAN CORPUSCULAR HGB CONC 33 G/DL (32-36); MEAN CORPUSCULAR VOLUME 93 FL (80-99); MEAN PLATELET VOLUME 11.9 FL (7.4-10.4); PLATELET COUNT 170 10^3/uL (130-400); RED CELL DISTRIBUTION WIDTH 12.4 % (10.0-14.5); WHITE BLOOD COUNT 10.8 10^3/uL (4.3-11.0)
[2019-11-16 18:23] LABS: BASOPHILS % (AUTO) 0 % (0-10); EOSINOPHILS # (AUTO) 0.1 10^3/uL (0.0-0.3); EOSINOPHILS % (AUTO) 1 % (0-10); LYMPHOCYTES # (AUTO) 1.3 X 10^3 (1.0-4.0); LYMPHOCYTES % (AUTO) 12 % (12-44); MONOCYTES # (AUTO) 0.7 X 10^3 (0.0-1.0); MONOCYTES % (AUTO) 6 % (0-12); NEUTROPHILS # (AUTO) 8.7 X 10^3 (1.8-7.8); NEUTROPHILS % (AUTO) 80 % (42-75)
[2019-11-16 18:58] LABS: ALANINE AMINOTRANSFERASE 14 U/L (0-55); ALBUMIN 4.8 GM/DL (3.2-4.5); ALKALINE PHOSPHATASE 41 U/L (40-136); BILIRUBIN,TOTAL 0.7 MG/DL (0.1-1.0); BUN/CREATININE RATIO 20; CALCIUM 9.9 MG/DL (8.5-10.1); CARBON DIOXIDE 20 MMOL/L (21-32); CHLORIDE 100 MMOL/L (98-107); CREATININE SERUM 0.71 MG/DL (0.60-1.30); GFR ESTIMATED > 60; GLUCOSE 108 MG/DL (70-105); POTASSIUM 3.6 MMOL/L (3.6-5.0); SODIUM 136 MMOL/L (135-145); TOTAL PROTEIN 7.1 GM/DL (6.4-8.2)
[2019-11-16] MEDS ORDERED: fentaNYL INJECTION 100 MCG/2 ML AMP IVP STA (19:17)
[2019-11-16] MEDS ORDERED: ONDANSETRON 4 MG/2 ML (SDV) Z0FRAN ONE (19:32)
[2019-11-16] MEDS ORDERED: ONDANSETRON 4 MG/2 ML (SDV) Z0FRAN IVP ONE (19:45)
[2019-11-16 19:48] VITALS: BP 124/79
== END 2019-11-16 20:28 | disposition left against medical advice (07) ==
LOC: EDUNIT# 17:45 → ER FS 17:46
DX: O26.891 Other specified pregnancy related conditions, first trimester (principal); R10.31 Right lower quadrant pain; Z3A.08 8 weeks gestation of pregnancy
CPT/HCPCS: 36415; 80053; 81000; 84702; 84703; 85025; 86141

== ENCOUNTER 2019-11-17 09:16 | Emergency (ER) | payer MEDICAID ==
[~2019-11-17] VITALS: Ht 170 cm; Wt 55.0 kg
--- OUTSIDE RECORDS SUMMARY | 2019-11-17 09:44 | XMS REPORT | Continuity of Care Document ---
Author Organization Unknown Address Unknown Phone Unavailable Allergies Active Description Code Type Severity Reaction Onset Reported/Identified Relationship to Patient Clinical Status Yes No Known Drug Allergies [id number] Drug Allergy Unknown N/A 01/15/2017 Medications There [...] Code Description Performed By Per formed On [id number] DR GAVIRIA OF VESTIBULAR GLAND, OPEN APPRO 01/15/2017 [id number] EX TRACTION OF POC, LOW CERVICAL, OPEN AP 01/15/2017 Results Test Result Range Blood type T Indirect antibody screen pa lm - 01/15/17 15:18 ABO+Rh group AP NRG Transfusion band number [id number] NRG Blood group antibody screen NEGATIVE NR [...] culture - 01/15/17 15:20 Bacterial urine culture [id number] NRG COLONY COUNT >100,000/ML NRG FTX;REPORTABLE PLUS [...] 17:45 Bacteria identification in wound by culture [id number] NRG FREE TEXT EXTERNAL BETA-LACTAMASE NEGATIVE [...] blood basophil count (count/volume) 0.0 10*3/uL 0.0-0.1 Complete urinalysis with reflex to cultu re - 11/16/19 17:50 Urine color determination YELLOW NRG Urine clarity determination SLT CLOUDY NRG Urine pH measurement by test strip 6.0 5-9 Specific gravity of urine by test strip 1.020 1.016-1.022 Urine protein assay by test strip, semi-quantitative NEGATIVE NEGATIVE Urine glucose detection by automated test strip NE GATIVE NEGATIVE Erythrocytes detection in urine sediment by light micr oscopy 1+ NEGATIVE Urine ketones detection by automated test strip 3+ NEGATIVE Urine nitrite detection by test strip NEGATIVE NEGATIVE Urine total bilirubin detection by test strip NEGA TIVE NEGATIVE Urine urobilinogen measurement by automated test strip (mass/volume) 0.2 mg/dL < = 1.0 Urine leukocyte esterase detection by dipstick NEG ATIVE NEGATIVE Automated urine sediment erythrocyte cou nt by microscopy (number/high power field) [HPF] NRG Automated urine sediment leukocyte count by microscopy (number/high power field) [HPF] NRG Bacteria detection in urine sediment by light microsco py TRACE NRG Squamous epithelial cells detection in u rine sediment by light microscopy 5-10 NRG Crystals detection in urine sediment by light microsco py NONE NRG Casts detection in urine sediment by light microscopy NONE NRG Mucus detection in urine sediment by light microscopy SMALL NRG Complete urinalysis with reflex to culture NO NRG Complete blood count (CBC) with automate d white blood cell (WBC) differential - 11/16/19 18:15 Blood leukocytes automated count (number/volume) 10.8 10*3/uL 4.3-11.0 Blood erythrocytes automated count (number/volume) 4.00 10*6/uL 4.35-5.85 Venous blood hemoglobin measurement (mass/volume) 12.4 g/dL 11.5-16.0 Blood hematocrit (volume fraction) 37 % 35-52 Automated erythrocyte mean corpuscular volume 93 [ foz_us] 80-99 Automated erythrocyte mean corpuscular h emoglobin (mass per erythrocyte) 31 pg 25-34 Automated erythrocyte mean corpuscular h emoglobin concentration measurement (mass/volume) 33 g/dL 32-36 Automated erythrocyte distribution width ratio 12. 4 % 10.0- 14.5 Automated blood platelet count (count/volume) 170 10*3/uL 130-400 Automated blood platelet mean volume measurement 11.9 [foz_us] 7.4-10.4 Automated blood neutrophils/100 leukocytes 80 % 42-75 Automated blood lymphocytes/100 leukocytes 12 % 12-44 Blood monocytes/100 leukocytes 6 % 0-12 Automated blood eosinophils/100 leukocytes 1 % 0-10 Automated blood basophils/100 leukocytes 0 % 0-10 Blood neutrophils automated count (number/volume) 8.7 10*3 1.8-7.8 Blood lymphocytes automated count (number/volume) 1.3 10*3 1.0-4.0 Blood monocytes automated count (number/volume) 0. 7 10*3 0.0-1.0 Automated eosinophil count 0.1 10*3/uL 0 .0-0.3 Automated blood basophil count (count/volume) 0.0 10*3/uL 0.0-0.1 Comprehensive metabolic panel - 11/16/19 18:15 Serum or plasma sodium measurement (moles/volume) 136 mmol/L 135-145 Serum or plasma potassium measurement (moles/volume) 3.6 mmol/L 3.6-5.0 Serum or plasma chloride measurement (moles/volume) 100 mmol/L 98-107 Carbon dioxide 20 mmol/L 21-32 Serum or plasma anion gap determination (moles/volume) 16 mmol/L 5-14 Serum or plasma urea nitrogen measurement (mass/volume ) 14 mg/dL 7-18 Serum or plasma creatinine measurement (mass/volume) 0.71 mg/dL 0.60-1.30 Serum or plasma urea nitrogen/creatinine mass ratio 20 NRG Serum or plasma creatinine measurement w ith calculation of estimated glomerular filtration rate > NRG Serum or plasma glucose measurement (mass/volume) 108 mg/dL 70-105 Serum or plasma calcium measurement (mass/volume) 9.9 mg/dL 8.5-10.1 Serum or plasma total bilirubin measurement (mass/volu me) 0.7 mg/dL 0.1-1.0 Serum or plasma alkaline phosphatase aj surement (enzymatic activity/volume) 41 U/L 40-136 Serum or plasma aspartate aminotransfera se measurement (enzymatic activity/volume) 19 U/L 5-34 Serum or plasma alanine aminotransferase measurement (enzymatic activity/volume) 14 U/L 0-55 Serum or plasma protein measurement (mass/volume) 7.1 g/dL 6.4-8.2 Serum or plasma albumin measurement (mass/volume) 4.8 g/dL 3.2-4.5 Serum or plasma choriogonadotropin measu rement (units/volume) - 11/16/19 18:15 Serum or plasma choriogonadotropin measurement (units/ volume) 18947 m[iU]/mL <5 CRP FS - 11/16/19 18:15 CRP FS 0.04 mg/dL <0.50 Encounters ACCT No. Visit Date/Time Discharge Status Pt. Type Provider Facility Loc./Unit Complaint [id number] 10/18/2018 15:30:00 10/18/2018 23:59: 59 CLS Outpatient RACHEL JOE DO [facility] [id number] 11/16/2019 17:46:00 020 20:28:00 DIS Emergency ANAHY NORTON DO [facility] ER FS ABD/BACK PAIN [id number] 01/15/2017 14:20:00 017 14:00:00 DIS Inpatient MAGGIE ROBERTS MD [facility] LDRP REPEAT C-SECTIO N
--- NOTE | 2019-11-17 09:53 | ED GU-Female ---
General Chief Complaint: OB < 20 WEEKS Stated Complaint: RT FLANK PAIN; RT ABD PAIN; VAGINAL BLEEDING Nursing Triage Note: PT LEFT AMA LAST PM AFTER SHE WAS TOLD EMS WOULD TRANSFER HER TO [facility] BUT COULD NOT WAIT ON HER TO HAVE AN ULTRASOUND AND BRING HER BACK TO [facility]. SHE STATES SHE IS HERE THIS AM FOR AN ULTRASOUND BC SHE WAS TOLD TO FOLLOW UP WITH OBGYN THIS AM FOR AN ULTRASOUND. SHE DID NOT CALL OB BUT PRESENTED BACK TO THE ER FOR AN ULTRASOUND. Nursing Sepsis Screen: No Definite Risk Source: patient, old records History of Present Illness Date Seen by Provider: Nov 17, 2019 Time Seen by Provider: 09:18 Initial Comments 24 yo female presents to the ED for follow up from last night's ED visit. She was going to be a transfer to [facility] to have an ultrasound to evaluate for right sided pelvic and flank pain and see if she had an ectopic . She believes she is about 8 weeks based off of her last menstrual period. She states that she was having severe pain last night and after leaving she did have some spotting that she believes was from her vaginal area. She did not transferred to [facility] for the ultrasound because she would not have a way to be transported to home after having the test done. She states that she fairly recently moved to the area and does not have a regular provider. She has 2 children at home and has had 2 previous miscarriages in the last 2 years. She was concerned that she was having another miscarriage because of having some spotting last night and feeling like she was having similar pains. She took some Tylenol and went to bed. This morning her pain is doing a lot better and is basically resolved. However she presented to the emergency department for follow-up as she felt like she still needed an ultrasound to determine what was causing her pain. Allergies and Home Medications Allergies Coded Allergies: No Known Drug Allergies (Unverified , 01/15/17) Home Medications Cephalexin 500 Mg Capsule, 500 MG PO QID Prescribed by: MAGGIE RASHID on 01/16/17 075 Docusate Sodium 100 Mg Capsule, 100 MG PO BID Prescribed by: MAGGIE RASHID on 01/16/17 075 Ibuprofen 800 Mg Tablet, 800 MG PO Q6H Prescribed by: MAGGIE RASHID on 01/16/17 0751 Oxycodone HCl/Acetaminophen 1 Each Tablet, 1-2 TAB PO Q4HR PRN for PAIN-MODERATE TO SEVERE Prescribed by: MAGGIE RASHID on 01/16/17 0751 Vit W-Ca,Fe,FA(<1 mg) 1 Each Tablet, 1 EACH PO DAILY, (Reported) Patient Home Medication List Home Medication List Reviewed: Yes Review of Systems Review of Systems Constitutional: No chills; dizziness (sometimes if she stands up after squatting down); No fever EENTM: no symptoms reported Respiratory: no symptoms reported Cardiovascular: palpitations (occasional) Gastrointestinal: see HPI Genitourinary: see HPI; denies burning, denies dysuria : Yes Musculoskeletal: no symptoms reported Skin: no symptoms reported Psychiatric/Neurological: No Symptoms Reported Endocrine: No Symptoms Reported Hematologic/Lymphatic: No Symptoms Reported Past Spolnyd-Ehcagu-Qmzdby Hx Past Med/Social Hx: Reviewed Nursing Past Med/Soc Hx Patient Social History Alcohol Use: Denies Use Recreational Drug Use: No Type Used: Cigarettes Recent Foreign Travel: No Contact w/Someone Who Travel: No Recent Infectious Disease Expo: No Recent Hopitalizations: No Physical Abuse: No Sexual Abuse: No Mistreated: No Fear: No Immunizations Up To Date Tetanus Booster (TDap): Unknown Seasonal Allergies Seasonal Allergies: No Past Medical History Surgeries: Yes (hand surgery) Respiratory: No Cardiac: Yes ("skipped beats") Neurological: No Hx : 5 Hx Para: 2 Hx Total # of Abortions (Sp): 2 (miscarriage x 2) Genitourinary: No Gastrointestinal: No Musculoskeletal: No Endocrine: No HEENT: No Cancer: No Psychosocial: No Integumentary: No Blood Disorders: No Family Medical History Patient reports no known family medical history. Physical Exam Vital Signs Vital Signs - First Documented 11/17/19 09:28 Temp 36.6 Pulse 81 Resp 18 B/P (MAP) 152/93 (112) Pulse Ox 98 O2 Delivery Room Air Capillary Refill : Less Than 3 Seconds Height, Weight, BMI Height: 5'7.00" Weight: 133lbs. 0.6oz. 60.037303vi; 19.00 BMI Method: General Appearance: WD/WN, no apparent distress, thin HEENT: PERRL/EOMI, pharynx normal Neck: non-tender, full range of motion, supple Cardiovascular: normal peripheral pulses, regular rate, rhythm, no edema Respiratory: chest non-tender, lungs clear, normal breath sounds, no respiratory distress, no accessory muscle use Gastrointestinal: normal bowel sounds, non tender, soft, no pulsatile mass Back: normal inspection, no CVA tenderness, no vertebral tenderness Extremities: normal range of motion, non-tender, normal inspection, no pedal edema, normal capillary refill Neurologic/Psychiatric: alert, normal mood/affect, oriented x 3 Skin: normal color, warm/dry Progress/Results/Core Measures Suspected Sepsis Recent Fever Within 48 Hours: No Infection Criteria Present: None New/Unexplained Altered Menta: No Sepsis Screen: No Definite Risk SIRS Temperature: Pulse: 81 Respiratory Rate: 18 Blood Pressure 152 /93 Mean: 112 Results/Orders My Orders Orders - NIRAV VERDUGO MD Us Ob Single Fetus<14 [id number] (11/17/19 09:42) Vital Signs/I&O 11/17/19 09:28 Temp 36.6 Pulse 81 Resp 18 B/P (MAP) 152/93 (112) Pulse Ox 98 O2 Delivery Room Air Capillary Refill : Less Than 3 Seconds Blood Pressure Mean: 112 Progress Note #1: Progress Note since she was just here ThursdayNovember 15 at night will defer repeating tests done then but will check with [facility] to see if they have durable medical equipment technician available to do test to evaluate for ectopic and pelvic/flank pain. After calling, [facility] does have US tech available so order placed and will see about obtaining US of pelvis/Transvaginal to look for source of her pain and spotting. Progress Note #2: Time: 10:24 Progress Note Patient back from ultrasound and informal report was that she has live intrauterine with a small subchorionic hemorrhage. She has good blood flow to both ovaries. Will give information about threatened miscarriage with follow up information and recommend she arrange for Student Education Specialist/OB clinic care and establish with a provider. I did discuss the pt with Dr. Fiore. He was on vacation but kind enough to speak with me about her. He recommends bed rest, pelvic rest and states he could see her next week when he comes back from vacation. Diagnostic Imaging Diagonstic Imaging: Ultrasound Plain Films/CT/US/NM/MRI: other (pelvis) Comments NAME: LILIAVANESA [facility] REC#: [id number] PT STATUS: REG ER : 1995 PHYSICIAN: NIRAV VERDUGO MD ADMIT DATE: 11/17/19/ER FS Draft Date of Exam:11/17/19 US OB SINGLE FETUS<14 [id number] PROCEDURE: US OB SINGLE FETUS <14 WKS. TECHNIQUE: Multiple real-time grayscale images were obtained over the gravid uterus in various projections. INDICATION: Right-sided pelvic pain and vaginal spotting. There is an intrauterine gestational sac containing a pole consistent with approximately 7 weeks 0 days gestational age. heart motion was detected at 130 bpm. There does appear to be some juan josé-gestational sac hemorrhage present measuring 2.1 x 3.6 x 0.2 cm. Ovaries are unremarkable. No adnexal mass or free fluid is seen. IMPRESSION: Single live IUP approximately 7 weeks 0 days gestational age. There is juan josé-gestational sac hemorrhage present. Follow-up could be obtained. Dictated on workstation # [id number] Dict: 11/17/19 1038 Trans: 11/17/19 1048 [facility] [id number] Interpreted by: CARMELINA ALLEN MD Electronically signed by: Departure Impression Primary Impression: Subchorionic hemorrhage in first trimester Qualified Codes: O41.8X10 - Other specified disorders of amniotic fluid and membranes, first trimester, not applicable or unspecified; O46.8X1 - Other antepartum hemorrhage, first trimester Additional Impression: Right flank pain Disposition: 01 HOME, SELF-CARE Condition: Stable Departure-Patient Inst. Decision time for Depature: 10:59 Referrals: MAGGIE ROBERTS MD ,LOCAL PHYSICIAN (PCP) Primary Care Physician GRIS FIORE DO [facility] Patient Instructions: Bleeding With (DC), Flank Pain (DC), Subchorionic Bleeding Add. Discharge Instructions: Establish care and follow up with pipeline operator as soon as possible All discharge instructions reviewed with patient and/or family. Voiced understanding. Work/School Note: Work Release Form Date Seen in the Emergency Department: Nov 17, 2019 Return to Work: Nov 24, 2019 Restrictions: Need Release from Doctor Other Restrictions Listed Below: May return to work when released by OB/Gynecology. NIRAV VERDUGO MD Nov 17, 2019 09:53
--- NOTE | 2019-11-17 10:49 | Diagnostic Imaging Report ---
PROCEDURE: US OB SINGLE FETUS <14 WKS. TECHNIQUE: Multiple real-time grayscale images were obtained over the gravid uterus in various projections. INDICATION: Right-sided pelvic pain and vaginal spotting. There is an intrauterine gestational sac containing a pole consistent with approximately 7 weeks 0 days gestational age. heart motion was detected at 130 bpm. There does appear to be some juan josé-gestational sac hemorrhage present measuring 2.1 x 3.6 x 0.2 cm. Ovaries are unremarkable. No adnexal mass or free fluid is seen. IMPRESSION: Single live IUP approximately 7 weeks 0 days gestational age. There is juan josé-gestational sac hemorrhage present. Follow-up could be obtained. Dictated by: Dictated on workstation # [id number]
[2019-11-17 11:09] VITALS: BP 132/68
== END 2019-11-17 11:05 | disposition home or self-care (01) ==
LOC: EDUNIT# 09:16 → ER FS 09:18
DX: O41.8X10 Other specified disorders of amniotic fluid and membranes, first trimester, not applicable or unspecified (principal); O20.9 Hemorrhage in early pregnancy, unspecified; O26.891 Other specified pregnancy related conditions, first trimester; R10.9 Unspecified abdominal pain; Z3A.01 Less than 8 weeks gestation of pregnancy
CPT/HCPCS: 76801

== ENCOUNTER 2020-06-25 07:58 | Outpatient (CLI) | payer MEDICAID ==
[~2020-06-25] VITALS: Ht 170.2 cm; Wt 62.3 kg
[~2020-06-25 07:58] MED LIST changes: -OXYC-465 PO; +OXYC-556 PO
[2020-06-25] MEDS ORDERED: PREN1TAB79 PO (09:39)
== END 2020-06-25 09:44 | disposition home or self-care (01) ==
LOC: PREOP 07:58
PROVIDERS: ATTEND Obstetrics & Gynecology
DX: Z01.818 Encounter for other preprocedural examination (principal)

== ENCOUNTER 2020-06-27 02:58 | Inpatient (IN) | payer MEDICAID ==
[~2020-06-27] VITALS: Ht 170.2 cm; Wt 61.2 kg
[2020-06-27] VITALS (12 sets, daily range): BP systolic 102–128; BP diastolic 58–81
[~2020-06-27 02:58] MED LIST changes: +PREN1TAB79 PO
[2020-06-27] MEDS ORDERED: ceFAZolin INJECTION 2,000 MG in WATER (STERILE) FOR INJECTION 10 ML IV ONE (11:30)
[2020-06-27] MEDS ORDERED: ceFAZolin 2 GM IV Premixed 50 ML IV ONE (11:30)
[2020-06-27] MEDS ORDERED: D5 LR IV SOLUTION 1,000 ML IV SCH ×2 (11:30→14:00)
[2020-06-27] MEDS ORDERED: metroNIDAZOLE 500MG/100ML IVPB 100 ML IV ONE ×2 (11:30)
[2020-06-27 12:00] LABS: BASOPHILS # (AUTO) 0.1 10^3/uL (0.0-0.1); EOSINOPHILS % (AUTO) 1 % (0-10); MEAN CORPUSCULAR VOLUME 98 fL (80-99)
[2020-06-27 12:01] LABS: BASOPHILS % (AUTO) 1 % (0-10); EOSINOPHILS # (AUTO) 0.1 10^3/uL (0.0-0.3); HEMATOCRIT 36 % (35-52); HEMOGLOBIN 11.9 g/dL (11.5-16.0); LYMPHOCYTES # (AUTO) 1.9 10^3/uL (1.0-4.0); LYMPHOCYTES % (AUTO) 15 % (12-44); MEAN CORPUSCULAR HEMOGLOBIN 32 pg (25-34); MEAN CORPUSCULAR HGB CONC 33 g/dL (32-36); MEAN PLATELET VOLUME 13.4 fL (9.0-12.2); MONOCYTES # (AUTO) 1.1 10^3/uL (0.0-1.0); MONOCYTES % (AUTO) 8 % (0-12); NEUTROPHILS % (AUTO) 75 % (42-75); PLATELET COUNT 224 10^3/uL (130-400); WHITE BLOOD COUNT 13.3 10^3/uL (4.3-11.0)
[2020-06-27] MEDS ORDERED: fentaNYL INJ 100 MCG/2 ML AMP ONE (12:06)
[2020-06-27] MEDS ORDERED: LACTATED RINGERS 1,000 ML IV PRN (12:15)
[2020-06-27] MEDS ORDERED: FAMOTIDINE 20MG/2ML IV (PEPCID) IV ONE (12:15)
[2020-06-27] MEDS ORDERED: CITRIC ACID/SOB CIT (BICITRA) 30 ML UDC PO ONE (12:15)
[2020-06-27] MEDS ORDERED: METOCLOPRAMIDE INJ 10 MG/2 ML (REGLAN) IV ONE (12:15)
[2020-06-27] MEDS ORDERED: BUPIVACAINE 0.5% 30 ML (SENSORCAINE) VIAL ONE (12:43)
[2020-06-27] MEDS ORDERED: OXYTOCIN (PITOCIN) 10 UNIT/ML VIAL ONE ×2 (12:44)
[2020-06-27] MEDS ORDERED: KETOROLAC 30 MG/ML VIAL ONE ×3 (12:46→18:43)
[2020-06-27] MEDS ORDERED: PHENYLEPHRINE 100 MCG/ML 10 ML (ANESTHESIA) SYR ONE (13:47)
[2020-06-27] MEDS ORDERED: IBUPROFEN 800 MG (MOTRIN) TAB PO SCH ×2 (14:00→18:00)
[2020-06-27] MEDS ORDERED: MEASLES,MUMPS,RUBELLA 1 EA INJ SC ONE (14:00)
[2020-06-27] MEDS ORDERED: TETANUS,DIPTH,PERTUSS P/F (BOOSTRIX) 0.5 ML VIAL IM ONE (14:00)
[2020-06-27] MEDS ORDERED: ONDANSETRON 4 MG/2 ML (SDV) Z0FRAN IVP PRN (14:00)
[2020-06-27] MEDS ORDERED: fentaNYL INJ 100 MCG/2 ML AMP IVP PRN (14:00)
[2020-06-27] MEDS: OXYTOCIN PRE-MIX DRIP 500 ML IV SCH ×2 (15:55→20:09)
[2020-06-27] MEDS: oxyCODONE/APAP 10/325MG (PERCOCET 10) TABLET PO PRN ×3 (15:55→22:03)
[2020-06-27] MEDS ORDERED: KETOROLAC 30 MG/ML VIAL IVP PRN (19:45)
[2020-06-27] MEDS: DOCUSATE SODIUM 100 MG (COLACE) CAP PO SCH (20:09)
[2020-06-27] MEDS ORDERED: DOCUSATE SODIUM 100 MG (COLACE) CAP PO SCH (21:00)
--- NOTE | 2020-06-27 21:24 | OPERATIVE REPORT ---
DATE OF SERVICE: 06/27/2020 DELIVERY NOTE The patient delivered by repeat delivery of a viable male infant with Apgars of 8 and 9 at 1 and 5 minutes respectively, weight of 7 pounds, time of 1334 and cord blood pH of 7.29. OPERATIVE DESCRIPTION: With the patient in the supine position under satisfactory spinal analgesia, the patient was prepped and draped in the usual fashion for abdominal surgery. Garcia catheter was placed in the urinary bladder. A repeat Pfannenstiel incision was made through skin with a scalpel by removing the patient's previous Pfannenstiel incisional scar. The abdomen was then entered in the usual manner. Bladder retractor placed in position, clean scalpel used to make a 4 cm hysterotomy incision transversely across the lower uterine segment that was extended by blunt dissection as well. Moderate amount of clear amniotic fluid was released on hysterotomy. Potts forceps were applied to facilitate delivery of the vigorous viable male infant. had Apgars and stats as noted above. Infant was bulb suctioned on delivery of the head and again on completion of delivery. The umbilical cord was doubly clamped and cut, and the infant passed to the pediatric nurse in attendance for delivery. Cord bloods were obtained. The placenta delivered fairly promptly spontaneously Villagran. It was normal with a 3-vessel cord. The uterus was exteriorized and interior wiped clean with a wet laparotomy sponge. Uterine incision then closed with running locked suture of 2-0 Vicryl. Hemostasis was complete. The uterus was returned to the abdominal cavity. All blood clot and debris removed from the abdominal cavity. Sponge and needle counts correct, hemostasis assured. Anterior parietal peritoneum was closed with running suture of 2-0 Vicryl. Rectus muscles were closed with that suture as well. The rectus fascia was closed with 2-0 Vicryl, subcutaneous tissue was closed with 2-0 Vicryl and the skin was stapled. Sponge and needle counts were correct on completion of the procedure. Blood loss was around 300 mL. The patient tolerated the procedure well and was transferred to recovery room in stable condition. The infant remained with the mom in the LDR. Job ID: [id number] DocumentID: [id number] Dictated Date: 06/27/2020 16:47:55 Liquid Sugar Melter Date: 06/27/2020 21:22:30 Dictated By: MAGGIE ROBERTS MD
[2020-06-28 00:40] VITALS: BP 115/77
[2020-06-28 04:20] VITALS: BP 116/72
[2020-06-28] MEDS: oxyCODONE/APAP 10/325MG (PERCOCET 10) TABLET PO PRN ×4 (04:22→22:33)
[2020-06-28 05:30] VITALS: BP 120/80
[2020-06-28] MEDS: IBUPROFEN 800 MG (MOTRIN) TAB PO SCH ×3 (06:42→18:23)
--- NOTE | 2020-06-28 06:54 | Anesthesia-Regional Post-Op ---
Regional Patient Condition Mental Status: Alert, Oriented x3 Circulation: Same as Pre-Op Headache: Absent Sensation: Full Recovery Motor Block: Absent Post Op Complications Complications None Follow Up Care/Instructions Patient Instructions None needed. Anesthesia/Patient Condition Patient is doing well, no complaints, stable vital signs, no apparent adverse anesthesia problems. No complications reported per nursing. ANUSHA GUTIERREZ CRNA Jun 28, 2020 06:54
[2020-06-28 08:55] VITALS: BP 117/85
[2020-06-28] MEDS: DOCUSATE SODIUM 100 MG (COLACE) CAP PO SCH ×2 (08:55→21:36)
--- NOTE | 2020-06-28 10:47 | Progress Note ---
Standard Progress Note Progress Notes/Assess & Plan Date Seen by a Provider: Jun 28, 2020 Time Seen by a Provider: 10:46 Progress/Assessment & Plan This patient is without complaint. She is ambulating, voiding, tolerating oral intake well and has good pain control. Vital Signs Date Time Temp Pulse Resp B/P (MAP) Pulse Ox O2 Delivery O2 Flow Rate FiO2 06/28/20 04:20 36.4 65 16 116/72 (87) 96 Room Air 06/28/20 00:40 36.7 72 16 115/77 (90) 98 Room Air 06/27/20 20:12 36.7 85 18 121/71 (88) 96 Room Air 06/27/20 18:55 37.2 78 18 117/60 (79) Room Air 06/27/20 14:55 36.9 18 102/69 (80) 98 Room Air 06/27/20 14:40 36.3 16 117/67 (84) 97 Room Air 06/27/20 14:24 36.4 16 116/67 (83) 100 Room Air 06/27/20 14:05 36.2 16 106/59 (75) 100 Room Air 06/27/20 13:00 18 128/81 (97) Room Air 06/27/20 12:50 78 18 108/58 (75) Room Air 06/27/20 12:30 78 18 118/61 (80) Room Air 06/27/20 12:15 78 18 114/62 (79) Room Air 06/27/20 12:00 78 18 118/61 (80) Room Air 06/27/20 11:35 37.5 81 18 120/73 (89) 98 Room Air 06/27/20 11:35 37.5 81 18 98 Room Air I & O 06/28/20 07:00 Intake Total 1910 ml Output Total 1300 ml Balance 610 ml Vital signs are stable. Patient is afebrile. The abdomen is benign. The surgical incision is clean dry and intact. Extremities show no clubbing or cyanosis. There is no Homans' sign. Assessment and plan postoperative day #1 status post repeat delivery doing well. Plan is for routine convalescent care MAGGIE ROBERTS MD Jun 28, 2020 10:47
--- NOTE | 2020-06-28 10:49 | History & Physical ---
History and Physical Date Seen by Provider: Jun 27, 2020 Time Seen by Provider: 12:00 This patient is a 25-year-old white female admitted now for repeat delivery. Her has been uncomplicated. Her GBS culture was negative. Allergies are none Medications are vitamins Medical social and surgical history is all per the antepartum record HEENT exam is normal Neck is supple no lymphadenopathy no thyromegaly Abdomen is gravid soft nontender nondistended Extremities show no clubbing or cyanosis. There is no Homans' sign. Assessment and plan term with previous x2 admitted now for repeat delivery Allergies and Home Medications Allergies Coded Allergies: No Known Drug Allergies (Unverified , 01/15/17) Home Medications Vit W-Ca,Fe,FA(<1 mg) 1 Each Tablet, 1 EACH PO DAILY, (Reported) Patient Home Medication List Home Medication List Reviewed: Yes MAGGIE ROBERTS MD Jun 28, 2020 10:49
[2020-06-28] MEDS ORDERED: IBUP-1780 PO (11:02)
[2020-06-28] MEDS ORDERED: DCS100C PO (11:02)
[2020-06-28] MEDS ORDERED: OXYC1TAB12 PO (11:02)
--- NOTE | 2020-06-28 11:03 | Discharge Inst-Surgical ---
Discharge Inst-Surgical Depart Medication/Instructions New, Converted or Re-Newed RX: RX on Chart Consults/Follow Up Patient Instructions: As directed Orders & Referrals Follow Up Appt: RTC Next Thursday, July 06, 2020 at 9:30 AM for incision check. Call to make follow up appt. for patient in 4 weeks. Wound Care: Remove sukumar, apply benzoin and steri strips. Activity Per routine post instructions. Please call in RX to patient pharmacy. Diet as tolerated Patient may shower or tub bathe as desired. Continue home meds Activity Activity as Tolerated: No Diet Discharge Diet: No Restrictions MAGGIE ROBERTS MD Jun 28, 2020 11:03
[2020-06-28 18:28] VITALS: BP 117/75
[2020-06-28 21:35] VITALS: BP 131/81
[2020-06-29] MEDS: IBUPROFEN 800 MG (MOTRIN) TAB PO SCH ×2 (00:22→06:19)
[2020-06-29 08:00] VITALS: BP 133/80
--- NOTE | 2020-06-29 08:03 | Progress Note ---
Standard Progress Note Progress Notes/Assess & Plan Date Seen by a Provider: Jun 29, 2020 Time Seen by a Provider: 08:02 Progress/Assessment & Plan This patient is without complaint. She is ambulating, voiding, tolerating oral intake well and has good pain control. Vital Signs Date Time Temp Pulse Resp B/P (MAP) Pulse Ox O2 Delivery O2 Flow Rate FiO2 06/28/20 04:20 36.4 65 16 116/72 (87) 96 Room Air 06/28/20 00:40 36.7 72 16 115/77 (90) 98 Room Air 06/27/20 20:12 36.7 85 18 121/71 (88) 96 Room Air 06/27/20 18:55 37.2 78 18 117/60 (79) Room Air 06/27/20 14:55 36.9 18 102/69 (80) 98 Room Air 06/27/20 14:40 36.3 16 117/67 (84) 97 Room Air 06/27/20 14:24 36.4 16 116/67 (83) 100 Room Air 06/27/20 14:05 36.2 16 106/59 (75) 100 Room Air 06/27/20 13:00 18 128/81 (97) Room Air 06/27/20 12:50 78 18 108/58 (75) Room Air 06/27/20 12:30 78 18 118/61 (80) Room Air 06/27/20 12:15 78 18 114/62 (79) Room Air 06/27/20 12:00 78 18 118/61 (80) Room Air 06/27/20 11:35 37.5 81 18 120/73 (89) 98 Room Air 06/27/20 11:35 37.5 81 18 98 Room Air I & O 06/28/20 07:00 Intake Total 1910 ml Output Total 1300 ml Balance 610 ml Vital signs are stable. Patient is afebrile. The abdomen is benign. The surgical incision is clean dry and intact. Extremities show no clubbing or cyanosis. There is no Homans' sign. Assessment and plan postoperative day #1 status post repeat delivery doing well. Plan is for routine convalescent care June 29, 2020 Patient is without complaint. She is ambulating, voiding, tolerating oral intake well and has good pain control. Patient is requesting discharge home. Vital signs are stable. Patient is afebrile. The abdomen is benign. The surgical incision clean dry and intact. The fundus is firm below the umbilicus and nontender. Extremities show no clubbing or cyanosis. There is no Homans' sign. Assessment and plan postoperative day #2 status post repeat delivery doing well. Plan is for discharge home with follow-up in clinic Final Diagnosis Repeat delivery MAGGIE ROBERTS MD Jun 29, 2020 08:03
[2020-06-29] MEDS: DOCUSATE SODIUM 100 MG (COLACE) CAP PO SCH (08:13)
[2020-06-29] MEDS: oxyCODONE/APAP 10/325MG (PERCOCET 10) TABLET PO PRN (09:42)
== END 2020-06-29 12:20 | disposition home or self-care (01) | DRG 788 ==
LOC: LDRP 11:23
PROVIDERS: ADMIT Obstetrics & Gynecology; ATTEND Obstetrics & Gynecology
PROC: 10D00Z1 Extraction of Products of Conception, Low, Open Approach (ICD-10-PCS; principal; 2020-06-27 13:07)
DX: O34.211 Maternal care for low transverse scar from previous cesarean delivery (principal); Z37.0 Single live birth; Z3A.39 39 weeks gestation of pregnancy
CPT/HCPCS: 36415; 85025; 86850; 86900; 86901; 94664

== ENCOUNTER 2021-01-13 10:46 | Emergency (ER) | payer MEDICAID ==
[~2021-01-13] VITALS: Ht 170 cm; Wt 45.0 kg
[~2021-01-13 10:46] MED LIST changes: +DOCU-239 PO; +OXYC1TAB12 PO
--- NOTE | 2021-01-13 10:56 | ED EENT ---
History of Present Illness General Chief Complaint: Dental Problems/Pain Stated Complaint: FACIAL SWELLING; DENTAL PAIN History of Present Illness Date Seen by Provider: Jan 13, 2021 Time Seen by Provider: 10:51 Initial Comments 25-year-old female presents with left sided dental pain, fractured tooth and facial swelling. She reports that she has had some dental issues for quite some time with fractured wisdom tooth and a few other fractured teeth. That 2 days ago she started getting some mild pain and facial swelling is progressed over the weekend. Patient feels that she probably has an infection that needs to be treated. She has seen a dentist for this and was told that she has some fractured teeth but did not get an indication of treatment plan. She denies any fevers chills or other systemic complaints. Allergies and Home Medications Allergies Coded Allergies: No Known Drug Allergies (Unverified , 01/15/17) Patient Home Medication List Home Medication List Reviewed: Yes Docusate Sodium (Dok) 100 Mg Capsule, 100 MG PO BID Prescribed by: MAGGIE RASHID on 06/28/20 110 Ibuprofen (Ibuprofen) 800 Mg Tablet, 800 MG PO Q6H Prescribed by: MAGGIE RASHID on 06/28/20 1102 Oxycodone HCl/Acetaminophen (Percocet 10-325 mg Tablet) 1 Each Tablet, 1 TAB PO Q4HR PRN for pain Prescribed by: MAGGIE RASHID on 06/28/20 1102 Vit W-Ca,Fe,FA(<1 mg) ( Vitamins) 1 Each Tablet, 1 EACH PO DAILY, (Reported) Entered as Reported by: CINDI LUNDBERG on 06/25/20 0939 Review of Systems Review of Systems Constitutional: No chills, No fever Ears: No Symptoms Reported Nose: no symptoms reported Mouth: see HPI Throat: no symptoms reported Respiratory: no symptoms reported Cardiovascular: no symptoms reported Gastrointestinal: no symptoms reported Musculoskeletal: no symptoms reported Skin: no symptoms reported Neurological: No Symptoms Reported Hematologic/Lymphatic: No Symptoms Reported Past Boxiyiz-Rorsri-Xfjyoa Hx Immunizations Up To Date Tetanus Booster (TDap): Unknown Seasonal Allergies Seasonal Allergies: No Past Medical History Surgeries: Yes (hand surgery, c/s x2) Section Respiratory: No Cardiac: Yes ("skipped beats") Neurological: No Genitourinary: No Gastrointestinal: No Musculoskeletal: No Endocrine: No HEENT: No Cancer: No Psychosocial: No Integumentary: No Blood Disorders: No Family Medical History Patient reports no known family medical history. Physical Exam Vital Signs Vital Signs - First Documented 01/13/21 10:50 Temp 37.0 Pulse 109 Resp 18 B/P (MAP) 161/98 (119) Pulse Ox 99 O2 Delivery Room Air Height, Weight, BMI Height: 5'7.00" Weight: 133lbs. 0.6oz. 60.369864kn; 21.12 BMI Method: General Appearance: WD/WN, no apparent distress Mouth/Throat: other (Mild erythema of the gumline, no obvious abscess, multiple fractured teeth on the left side) Cardiovascular: normal peripheral pulses, regular rate, rhythm Respiratory: lungs clear, normal breath sounds Neurologic/Psychiatric: alert, normal mood/affect, oriented x 3 Skin: normal color, warm/dry Progress/Results/Core Measures Results/Orders My Orders Orders - ANAHY NORTON DO Ceftriaxone (Rocephin) (01/13/21 11:00) Lidocaine 1% Inj 20 Ml (Xylocaine 1% Inj (01/13/21 11:00) Ketorolac Injection (Toradol Injection) (01/13/21 11:00) Vital Signs/I&O 01/13/21 10:50 Temp 37.0 Pulse 109 Resp 18 B/P (MAP) 161/98 (119) Pulse Ox 99 O2 Delivery Room Air Progress Progress Note : Progress Note Patient with extremely poor dentition with multiple fractured teeth on the left side. Patient with likely a dental infection and possible abscess formation starting. I will start her on amoxicillin. I recommend she call the dentist in the morning to arrange for an outpatient visit and further management treat Departure Impression Primary Impression: Dental abscess Additional Impression: Severe dental caries Disposition: 01 HOME, SELF-CARE Condition: Stable Departure-Patient Inst. Referrals: NO,LOCAL PHYSICIAN (PCP/Family) Primary Care Physician Patient Instructions: Dental Pain, Fractured Tooth (DC), Tooth Decay, Adult, Tooth Abscess (DC) Add. Discharge Instructions: Please call dentist in the morning to arrange for an evaluation and treatment plan as soon as possible Ibuprofen 600 mg 3 times daily and Tylenol 1000 mg 3 times daily please alternate Topical lidocaine cream or gel All discharge instructions reviewed with patient and/or family. Voiced understanding. Scripts Amoxicillin (Amoxicillin) 500 Mg Capsule 500 MG PO TID, #21 CAP 0 Refills Prov: ANAHY NORTON DO 01/13/21 ANAHY NORTON DO Jan 13, 2021 10:56
[2021-01-13] MEDS ORDERED: KETOROLAC 30 MG/ML VIAL IM ONE (11:00)
[2021-01-13] MEDS ORDERED: cefTRIAXone 1,000 MG VIAL IM ONE (11:00)
[2021-01-13] MEDS ORDERED: LIDOCAINE 1% INJ 20 ML 20 ML VIAL INJ ONE (11:00)
[2021-01-13] MEDS ORDERED: AMOX500C2 PO (11:04)
[2021-01-13 11:05] VITALS: BP 161/98
== END 2021-01-13 11:06 | disposition home or self-care (01) ==
LOC: EDUNIT# 10:46 → ER FS 10:47
DX: S02.5XXA Fracture of tooth (traumatic), initial encounter for closed fracture (principal); K04.7 Periapical abscess without sinus; K02.9 Dental caries, unspecified; X58.XXXA Exposure to other specified factors, initial encounter
CPT/HCPCS: 99284

== ENCOUNTER 2021-05-17 17:39 | Emergency (ER) | payer MEDICAID ==
[~2021-05-17] VITALS: Ht 170 cm; Wt 49.0 kg
[~2021-05-17 17:39] MED LIST changes: +AMOX500C2 PO
--- NOTE | 2021-05-17 17:48 | ED Upper Extremity ---
General Chief Complaint: Upper Extremity Stated Complaint: L ARM PAIN History of Present Illness Date Seen by Provider: May 17, 2021 Time Seen by Provider: 17:47 Initial Comments 26-year-old female presents with left wrist pain. Patient reports that her left wrist got slammed in a door accidentally earlier today by her . She is complaining of pain in both the dorsal and volar aspect of the wrist. It hurts if she makes a fist. Or if she flexes her wrist. She denies any other injury. Allergies and Home Medications Allergies Coded Allergies: No Known Drug Allergies (Unverified , 01/15/17) Patient Home Medication List Home Medication List Reviewed: Yes Amoxicillin (Amoxicillin) 500 Mg Capsule, 500 MG PO TID Prescribed by: ANAHY NORTON on 01/13/21 1104 Docusate Sodium (Dok) 100 Mg Capsule, 100 MG PO BID Prescribed by: MAGGIE RASHID on 06/28/20 110 Ibuprofen (Ibuprofen) 800 Mg Tablet, 800 MG PO Q6H Prescribed by: MAGGIE RASHID on 06/28/20 1102 Oxycodone HCl/Acetaminophen (Percocet 10-325 mg Tablet) 1 Each Tablet, 1 TAB PO Q4HR PRN for pain Prescribed by: MAGGIE RASHID on 06/28/20 1102 Vit W-Ca,Fe,FA(<1 mg) ( Vitamins) 1 Each Tablet, 1 EACH PO DAILY, (Reported) Entered as Reported by: CINDI LUNDBERG on 06/25/20 0939 Review of Systems Constitutional: no symptoms reported EENTM: no symptoms reported Respiratory: no symptoms reported Cardiovascular: no symptoms reported Gastrointestinal: no symptoms reported Genitourinary: no symptoms reported Musculoskeletal: see HPI Skin: no symptoms reported Psychiatric/Neurological: No Symptoms Reported Past Pzqlrjh-Xdkcaz-Wkmpbo Hx Immunizations Up To Date Tetanus Booster (TDap): Unknown Seasonal Allergies Seasonal Allergies: No Past Medical History Surgeries: Yes (hand surgery, c/s x2) Section Respiratory: No Cardiac: Yes ("skipped beats") Neurological: No Genitourinary: No Gastrointestinal: No Musculoskeletal: No Endocrine: No HEENT: No Cancer: No Psychosocial: No Integumentary: No Blood Disorders: No Family Medical History Patient reports no known family medical history. Physical Exam Vital Signs Vital Signs - First Documented 05/17/21 17:44 Temp 37.0 Pulse 114 Resp 18 B/P (MAP) 161/91 (114) Pulse Ox 100 O2 Delivery Room Air Capillary Refill : Height, Weight, BMI Height: 5'7.00" Weight: 133lbs. 0.6oz. 60.519123os; 15.00 BMI Method: General Appearance: WD/WN, no apparent distress HEENT: PERRL/EOMI Cardiovascular: normal peripheral pulses, regular rate, rhythm Respiratory: lungs clear, normal breath sounds Shoulder: normal inspection Elbow/Forearm: normal inspection Wrist: Yes limited ROM, Yes soft tissue tenderness; No swelling Hand: normal inspection, non-tender, no evidence of injury Neurologic/Psychiatric: alert, normal mood/affect, oriented x 3 Skin: normal color, warm/dry Progress/Results/Core Measures Results/Orders My Orders Orders - ANAHY NORTON DO Wrist 3 View Left (05/17/21 17:48) Vital Signs/I&O 05/17/21 18:07 Temp 37.0 Pulse 114 Resp 18 B/P (MAP) 161/91 Pulse Ox 100 O2 Delivery Room Air Progress Progress Note : Progress Note Patient with negative wrist x-ray. Patient instructed bare-dbs-kgsatqp medications Tylenol, ibuprofen, topical painkiller such as lidocaine, ice for 24 hours and warm moist heat. If her symptoms have not improved over the next 7 to 10 days she should follow-up with her primary care provider for repeat x-ray Diagnostic Imaging Diagonstic Imaging: Xray Plain Films/CT/US/NM/MRI: forearm, other Comments Date of Exam:05/17/21 WRIST 3 VIEW LEFT INDICATION: Trauma with pain. EXAMINATION: Three views of the left wrist were obtained. FINDINGS: The alignment is normal. There is no fracture or dislocation. The soft tissues are unremarkable. There are no radiopaque foreign bodies. IMPRESSION: No focal abnormality in the left wrist. Departure Impression Primary Impression: Contusion of left wrist, initial encounter Disposition: 01 HOME, SELF-CARE Condition: Stable Departure-Patient Inst. Referrals: NO,LOCAL PHYSICIAN (PCP/Family) Primary Care Physician Patient Instructions: Common Wrist Injuries (DC), Contusion (DC) ANAHY NORTON DO May 17, 2021 17:48
--- NOTE | 2021-05-17 18:04 | Diagnostic Imaging Report ---
INDICATION: Trauma with pain. EXAMINATION: Three views of the left wrist were obtained. FINDINGS: The alignment is normal. There is no fracture or dislocation. The soft tissues are unremarkable. There are no radiopaque foreign bodies. IMPRESSION: No focal abnormality in the left wrist. Dictated by: Dictated on workstation # [id number]
[2021-05-17 18:07] VITALS: BP 161/91
== END 2021-05-17 18:12 | disposition home or self-care (01) ==
LOC: EDUNIT# 17:39 → ER FS 17:40
DX: S60.212A Contusion of left wrist, initial encounter (principal); W22.03XA Walked into furniture, initial encounter
CPT/HCPCS: 73110

== ENCOUNTER 2021-12-06 15:42 | Emergency (ER) | payer MEDICAID ==
[~2021-12-06] VITALS: Ht 170.2 cm; Wt 49.9 kg
[2021-12-06 15:45] VITALS: BP 158/106
--- NOTE | 2021-12-06 15:53 | ED Lower Extremity ---
General Chief Complaint: Lower Extremity Stated Complaint: L CALF PAIN History of Present Illness Date Seen by Provider: Dec 06, 2021 Time Seen by Provider: 15:48 Initial Comments 26-year-old female presents with pain in left calf. Is located mainly in the mid calf but more posterior medial. She reports been going on for 3 days. She recalls no injury. She reports she has a 10-year smoking history and sometimes has sedentary and is concerned about a possible blood clot. She reports presents because she would like an ultrasound to make sure she does have a blood cell clot. She reports it gets worse with ambulation extension or flexion. She feels this may be mildly swollen. There is no warmth or redness to it. Allergies and Home Medications Allergies Coded Allergies: No Known Drug Allergies (Unverified , 01/15/17) Patient Home Medication List Home Medication List Reviewed: Yes Amoxicillin (Amoxicillin) 500 Mg Capsule, 500 MG PO TID Prescribed by: ANAHY NORTON on 01/13/21 1104 Docusate Sodium (Dok) 100 Mg Capsule, 100 MG PO BID Prescribed by: MAGGIE RASHID on 06/28/20 1102 Ibuprofen (Ibuprofen) 800 Mg Tablet, 800 MG PO Q6H Prescribed by: MAGGIE RASHID on 06/28/20 1102 Oxycodone HCl/Acetaminophen (Percocet 10-325 mg Tablet) 1 Each Tablet, 1 TAB PO Q4HR PRN for pain Prescribed by: MAGGIE RASHID on 06/28/20 1102 Vit W-Ca,Fe,FA(<1 mg) ( Vitamins) 1 Each Tablet, 1 EACH PO DAILY, (Reported) Entered as Reported by: CINDI LUNDBERG on 06/25/20 0939 Review of Systems Constitutional: No chills, No fever EENTM: no symptoms reported Respiratory: no symptoms reported Cardiovascular: no symptoms reported Gastrointestinal: no symptoms reported Genitourinary: no symptoms reported Musculoskeletal: see HPI Skin: no symptoms reported Psychiatric/Neurological: No Symptoms Reported Past Shdpjiz-Fzhwdr-Yaqcae Hx Immunizations Up To Date Tetanus Booster (TDap): Unknown Seasonal Allergies Seasonal Allergies: No Past Medical History Surgeries: Yes (hand surgery, c/s x2) Section Respiratory: No Cardiac: Yes ("skipped beats") Neurological: No Genitourinary: No Gastrointestinal: No Musculoskeletal: No Endocrine: No HEENT: No Cancer: No Psychosocial: No Integumentary: No Blood Disorders: No Family Medical History Patient reports no known family medical history. Physical Exam Vital Signs Vital Signs - First Documented 12/06/21 15:45 Temp 36.3 Pulse 125 Resp 18 B/P (MAP) 158/106 (123) Pulse Ox 100 O2 Delivery Room Air Capillary Refill : Height, Weight, BMI Height: 5'7.00" Weight: 133lbs. 0.6oz. 60.117153ky; 16.00 BMI Method: General Appearance: WD/WN, no apparent distress Neck: full range of motion Cardiovascular: regular rate, rhythm, no edema Gastrointestinal: No distended Legs: bilateral leg normal inspection, bilateral leg normal range of motion, bilateral leg no evidence of injury; left leg soft tissue tenderness (Mid medial posterior calf) Knees: bilateral knee non-tender Ankles: bilateral ankle non-tender Feet: bilateral foot non-tender Neurologic/Psychiatric: alert, normal mood/affect, oriented x 3 Skin: normal color, warm/dry Progress/Results/Core Measures Results/Orders Lab Results Laboratory Tests Test 12/06/21 16:10 Range/Units D-Dimer 0.28 0.00-0.49 UG/ML My Orders Orders - ANAHY NORTON DO Fibrin Degradation Products (12/06/21 16:01) Vital Signs/I&O 12/06/21 15:45 Temp 36.3 Pulse 125 Resp 18 B/P (MAP) 158/106 (123) Pulse Ox 100 O2 Delivery Room Air Progress Progress Note : Progress Note Patient's exam is nonconcerning for DVT. Patient's pain is more in the medial aspect and not as much in the posterior. Patient also has a negative D-dimer. Discussed with her that ultrasound is not available but she has a very low risk with a negative D-dimer and that her pain and exams are consistent with a DVT. Patient was much more comfortable. Discussed with her supportive care for likely calf strain. Patient was stable and discharged Departure Impression Primary Impression: Strain of left calf muscle Disposition: HOME, SELF-CARE Condition: Stable Departure-Patient Inst. Referrals: NO,LOCAL PHYSICIAN (PCP/Family) Primary Care Physician Patient Instructions: Leg Muscle Strain ED Add. Discharge Instructions: Warm moist heat to affected area 3-4 times daily Tylenol ibuprofen as needed for disc Voltaren/diclofenac cream use as directed on package as needed for IcyHot, topical lidocaine or other kwic-rib-gevllyb muscle medications as directed on package All discharge instructions reviewed with patient and/or family. Voiced understanding. ANAHY NORTON DO Dec 06, 2021 15:53
== END 2021-12-06 16:44 | disposition home or self-care (01) ==
LOC: EDUNIT# 15:42 → ER FS 15:43
DX: S86.912A Strain of unspecified muscle(s) and tendon(s) at lower leg level, left leg, initial encounter (principal); Z87.891 Personal history of nicotine dependence; Z28.310 Unvaccinated for COVID-19; X58.XXXA Exposure to other specified factors, initial encounter
CPT/HCPCS: 36415; 85379; 99281